=== PATIENT | female | born 1945 | race Caucasian/White ===

== ENCOUNTER 2017-04-23 07:52 | Day surgery (SDC) | payer OTHER ==
[~2017-04-23] VITALS: Ht 162.6 cm; Wt 122.7 kg
[2017-04-23] VITALS (8 sets, daily range): BP systolic 117–142; BP diastolic 50–64; PULSE 55–64; RESP 16–20; TEMP 97.4–98.1; O2SAT 88–97
[~2017-04-23 07:52] MED LIST: ASPI81 PO; EXEN10PE SQ; EZET10 PO; FENO50TA PO; FISH300C2 PO; FOLI1TAB PO; GLUCTAB PO; LANTUSP SQ; SITA50 PO
[2017-04-23] MEDS ORDERED: ASPI-516 CHEW (08:36)
[2017-04-23] MEDS ORDERED: FISH1000 PO (08:36)
[2017-04-23] MEDS ORDERED: AMLO5TAB2 PO (08:36)
[2017-04-23] MEDS ORDERED: MONT10TA4 PO (08:36)
[2017-04-23] MEDS ORDERED: SYSTSOL15 EACH EYE (08:36)
[2017-04-23] MEDS ORDERED: NOVOLOGP2 SQ (08:36)
[2017-04-23] MEDS ORDERED: EZET1TAB8 PO (08:36)
[2017-04-23] MEDS ORDERED: OMEG1CAP28 PO (08:36)
[2017-04-23] MEDS ORDERED: INSU1INJ18 SQ (08:36)
[2017-04-23] MEDS ORDERED: LACT10SO PO (08:36)
[2017-04-23] MEDS ORDERED: AMIO200T PO (08:36)
[2017-04-23] MEDS ORDERED: VALS1TAB64 PO (08:36)
[2017-04-23] MEDS ORDERED: OMEP40CA2 (08:36)
[2017-04-23] MEDS ORDERED: VITA1TAB26 (08:36)
[2017-04-23] MEDS ORDERED: METF-382 PO (08:36)
[2017-04-23] MEDS ORDERED: APIX5TAB PO (08:36)
[2017-04-23] MEDS ORDERED: LIOT5TAB3 (08:36)
[2017-04-23] MEDS ORDERED: VITA200013 (08:36)
[2017-04-23] MEDS ORDERED: CALTCHW5 PO (08:36)
[2017-04-23] MEDS ORDERED: LEVO75TA3 PO (08:36)
[2017-04-23] MEDS ORDERED: BIOT10TA PO (08:36)
[2017-04-23] MEDS ORDERED: CYCL5TAB PO (08:36)
[2017-04-23] MEDS ORDERED: FOLI800T PO (08:36)
[2017-04-23] MEDS ORDERED: OCUVTAB4 PO (08:36)
[2017-04-23] MEDS ORDERED: ONCETAB7 (08:36)
[2017-04-23] MEDS ORDERED: SODIUM CHLOR 0.9% 1000 ML IV SCH (08:45)
[2017-04-23] MEDS ORDERED: LIDOCAINE HCL 1% 20 ML VIAL ONE (10:18)
[2017-04-23] MEDS ORDERED: MIDAZOLAM HCL 2 MG/2 ML VIAL ONE (10:39)
[2017-04-23] MEDS ORDERED: HYDROmorphone HCL 2 MG TAB PO PRN (11:00)
--- NOTE | 2017-04-23 11:04 | PD.RAD ---
Post Procedure Progress Note Pre Procedure Diagnosis: (1) Cirrhosis Post Procedure Diagnosis: (1) Cirrhosis Procedure Date: Apr 23, 2017 Supervising Radiologist: Andrea Arango Estimated blood loss: none Plan of Activity Patient to Unit: ROPU Patient Condition: Good Additional Comments: CT guided liver biopsy completed. Single 18ga core taken. Post op CT was unremarkable Full dictated report to follow. See PACS Report for procedural detail/treatment Andrea Arango MD Apr 23, 2017 11:03
[2017-04-23] MEDS ORDERED: PILL SPLITTER OTHER PRN (12:00)
--- NOTE | 2017-04-23 15:55 | RADRPT ---
EXAM DATE/TIME: 04/23/2017 10:48 [place] COMPARISON: No previous studies available for comparison. INDICATIONS : Elevated liver function. SEDATION TIME: 30 minutes BIOPSY SITE: Right lateral MEDICATION(S): 1.) 2 mg midazolam (Versed) IV 2.) 100 mcg fentanyl (Sublimaze) IV DEVICE(S): 1.) 18 gauge Temno core biopsy needle 15cm MEDICAL HISTORY : Cirrhosis. Hypertension. SURGICAL HISTORY : Appendectomy. Cholecystectomy. Hysterectomy. ENCOUNTER: Initial ACUITY: 1 day PAIN SCORE: 0/10 LOCATION: Right lateral A total of one core specimen(s) were obtained and sent to the laboratory for pathologic evaluation. PROCEDURE: 1. CT guided liver biopsy. 2. Conscious sedation with continuous EKG and oximetry monitoring. Prior to the procedure informed consent was obtained. Any appropriate prior imaging studies were rev iewed. Using automated exposure control and adjustment of the mA and/or kV according to patient size, radiat ion dose was kept as low as reasonably achievable to obtain optimal diagnostic quality images. DICOM format image data is available electronically for review and comparison. The site was prepped in a sterile fashion. Full sterile technique was used, including cap, mask, bhavik rile gloves and gown and a large sterile sheet. Hand hygiene and 2% chlorhexidine and/or betadine/al cohol prep was utilized per protocol for cutaneous antisepsis. The skin and subcutaneous tissues wer e infiltrated with local anesthetic solution. With CT guidance the previously identified target was localized. Biopsy was performed using the presc ribed needle as above. Adequate hemostasis was obtained with compression at the puncture site. Follow-up CT scan reveals no hemorrhage. The patient tolerated the procedure well and there were no complications. The patient was returned to the Radiology Outpatient Unit in stable condition. CONCLUSION: Uncomplicated CT guided biopsy. Andrea Arango MD on April 23, 2017 at 15:54 Board Certified Radiologist. This report was verified electronically.
== END 2017-04-23 15:01 | disposition home or self-care (01) ==
LOC: HRAD 07:52 → HRIP 07:53 → HRAD 15:01
PROVIDERS: ATTEND Internal Medicine Gastroenterology
DX: K74.60 Unspecified cirrhosis of liver (principal); R93.8 Abnormal findings on diagnostic imaging of other specified body structures; I10 Essential (primary) hypertension
CPT/HCPCS: 47000; 77012; 88307; 88313; J2250; J3010; J7030